=== PATIENT | female | born 1980 | race Caucasian/White ===

== ENCOUNTER 2021-01-13 07:07 | Inpatient (IN) | payer OTHER ==
[2021-01-13 08:49] LABS: BASO % 0.3 % (0-2.0); EOS % 0.7 % (0-4.5); HEMATOCRIT 35.7 % (32.4-45.2); HEMOGLOBIN 11.9 GM/dL (10.7-15.3); LYMPH % 21.8 % (8-40); MCH 26.6 pg (25.7-33.7); MCHC 33.2 g/dl (32.0-36.0); MEAN CELL VOLUME 79.9 fl (80-96); MEAN PLT VOLUME 8.5 fl (7.5-11.1); MONO % 7.1 % (3.8-10.2); NEUT % 70.1 % (42.8-82.8); PLATELET COUNT 182 10^3/uL (134-434); RBC 4.47 M/mm3 (3.60-5.2); RDW 14.8 % (11.6-15.6); WHITE BLOOD COUNT 8.6 K/mm3 (4.0-10.0)
[2021-01-13 08:50] LABS: INR 0.87 (0.83-1.09); PROTHROMBIN TIME (PATIENT) 10.7 SEC (9.7-13.0)
[2021-01-13 09:08] LABS: CALCIUM 8.5 mg/dL (8.5-10.1)
[2021-01-13 09:09] LABS: BLOOD UREA NITROGEN 10.4 mg/dL (7-18)
[2021-01-13 09:12] LABS: CREATININE 0.4 mg/dL (0.55-1.3)
[2021-01-13] MEDS: ELECTROLYTE-148 SOLN 1,000 ML IV SCH (09:30)
[2021-01-13] MEDS: OXYTOCIN 30 UNITS in 0.9% NS 30 UNIT/500 ML INFUS.BAG IVPB SCH (10:00)
[2021-01-13 10:10] VITALS: BMI 34.1
[2021-01-13] MEDS ORDERED: OXYTOCIN 30 UNITS in 0.9% NS 30 UNIT/500 ML INFUS.BAG IVPB ONE (10:16)
[2021-01-13] MEDS ORDERED: BUTORPHANOL TARTRATE 1 MG/ML VIAL IVPUSH ONE (17:58)
[2021-01-13] MEDS ORDERED: PROMETHAZINE HCL 25 MG/1 ML VIAL IVPUSH ONE (17:58)
[2021-01-13] MEDS ORDERED: BUTORPHANOL TARTRATE 2 MG/ML VIAL ONE (17:58)
[2021-01-13] MEDS ORDERED: BUPIVACAINE HCL/PF 0.25% (2.5MG/ML) 10 ML VIAL ONE (19:08)
[2021-01-13] MEDS ORDERED: PCA PUMP NR ONE (19:53)
[2021-01-13] MEDS ORDERED: FENTANYL/BUPIVACAINE/NS/PF - PCEA - 50 ML DISP.SYRIN EP ONE (19:53)
[2021-01-13] MEDS: FENTANYL/BUPIVACAINE/NS/PF - PCEA - 50 ML DISP.SYRIN EP SCH (20:25)
[2021-01-13] MEDS ORDERED: NALOXONE HCL 0.4 MG/ML VIAL IVPUSH PRN (20:42)
[2021-01-13] MEDS ORDERED: OXYTOCIN 20 UNITS in 0.9% NS 20 UNIT/1,000 ML INFUS.BAG IV ONE (21:21)
[2021-01-13] MEDS ORDERED: LIDOCAINE HCL 1% PRESERVATIVE FREE - 30ML VIAL ONE (21:21)
[2021-01-13] MEDS: OXYTOCIN 20 UNITS in 0.9% NS 20 UNIT/1,000 ML INFUS.BAG IV SCH (21:40)
[2021-01-13] MEDS ORDERED: BISACODYL 10 MG SUPP.RECT RC PRN (21:54)
[2021-01-13] MEDS ORDERED: BENZOCAINE 20% 57 GM BOTTLE TP PRN (21:54)
[2021-01-13] MEDS ORDERED: BENZOCAINE 28 GM HEMORRHOIDAL OINTMENT TP PRN (21:54)
[2021-01-13] MEDS ORDERED: METHYLERGONOVINE MALEATE 0.2 MG/1 ML AMP IM PRN (21:54)
[2021-01-13] MEDS ORDERED: WITCH HAZEL 50% (TUCKS) 40 PAD/JAR PAD TP PRN (21:54)
[2021-01-13 22:38] LABS: CORD BASE EXCESS -5.3 mmol/L (0-2); CORD HCO3 22.3 mmHg (20-29); CORD PCO2 50.5 mmHg (30-78); CORD pH 7.263 (7.14-7.44)
[2021-01-13 22:42] LABS: CORD BASE EXCESS -2.2 mmol/L (0-2); CORD HCO3 23.9 mmHg (20-29); CORD PCO2 45.7 mmHg (30-78); CORD pH 7.337 (7.14-7.44)
[2021-01-14] MEDS: FERROUS SO4 325 MG TABLET (FP) PO SCH ×3 (00:08→23:48)
[2021-01-14] MEDS: IBUPROFEN 600 MG TABLET (FP) PO PRN ×2 (06:19→15:05)
[2021-01-14] MEDS: ACETAMINOPHEN 325 MG TABLET (FP) PO PRN ×2 (06:20→15:07)
[2021-01-14 07:29] LABS: BASO % 0.2 % (0-2.0); EOS % 0.3 % (0-4.5); HEMATOCRIT 37.2 % (32.4-45.2); HEMOGLOBIN 11.9 GM/dL (10.7-15.3); LYMPH % 18.1 % (8-40); MCH 25.9 pg (25.7-33.7); MEAN CELL VOLUME 80.9 fl (80-96); MEAN PLT VOLUME 8.8 fl (7.5-11.1); MONO % 7.8 % (3.8-10.2); NEUT % 73.6 % (42.8-82.8); PLATELET COUNT 168 10^3/uL (134-434); RBC 4.59 M/mm3 (3.60-5.2); RDW 14.9 % (11.6-15.6); WHITE BLOOD COUNT 11.7 K/mm3 (4.0-10.0)
[2021-01-14] MEDS: PRENATAL VITAMINS W/ FOLIC ACID TABLET (FP) PO SCH (09:16)
[2021-01-14] MEDS ORDERED: SENNOSIDES/DOCUSATE COMBO (SENNA PLUS) TABLET (UD) PO PRN (22:00)
[2021-01-14] MEDS: FENTANYL/BUPIVACAINE/NS/PF - PCEA - 50 ML DISP.SYRIN EP SCH (23:48)
[2021-01-14] MEDS: OXYTOCIN 20 UNITS in 0.9% NS 20 UNIT/1,000 ML INFUS.BAG IV SCH (23:48)
[2021-01-14] MEDS: ELECTROLYTE-148 SOLN 1,000 ML IV SCH (23:48)
[2021-01-14] MEDS: OXYTOCIN 30 UNITS in 0.9% NS 30 UNIT/500 ML INFUS.BAG IVPB SCH (23:48)
[2021-01-15] MEDS: ACETAMINOPHEN 325 MG TABLET (FP) PO PRN ×2 (01:50→09:36)
[2021-01-15] MEDS: IBUPROFEN 600 MG TABLET (FP) PO PRN ×2 (01:53→09:35)
[2021-01-15] MEDS: FERROUS SO4 325 MG TABLET (FP) PO SCH (09:35)
[2021-01-15] MEDS: PRENATAL VITAMINS W/ FOLIC ACID TABLET (FP) PO SCH (09:35)
[2021-01-15 10:52] VITALS: BP 119/76; PULSE 69; TEMP 97.8
== END 2021-01-15 12:50 | disposition home or self-care (01) | DRG 807 ==
LOC: JLDR 07:07 → J3W 23:30
PROVIDERS: ADMIT Obstetrics & Gynecology; ATTEND Obstetrics & Gynecology
PROC: 10E0XZZ Delivery of Products of Conception, External Approach (ICD-10-PCS; principal; 2021-01-13)
PROC: 0HQ9XZZ Repair Perineum Skin, External Approach (ICD-10-PCS; 2021-01-13)
DX: O24.414 Gestational diabetes mellitus in pregnancy, insulin controlled (principal); Z37.0 Single live birth; O99.214 Obesity complicating childbirth; E66.9 Obesity, unspecified; O70.0 First degree perineal laceration during delivery; O69.81X0 Labor and delivery complicated by cord around neck, without compression, not applicable or unspecified; Z88.1 Allergy status to other antibiotic agents; Z91.018 Allergy to other foods; Z3A.39 39 weeks gestation of pregnancy
CPT/HCPCS: 36415; 36600; 59409; 80048; 82803; 82962; 85025; 85610; 85730; 86780; 86850; 86870; 86900; 86901; 86902